=== PATIENT | female | born 1955 | race Caucasian/White ===

== ENCOUNTER 2017-12-16 06:38 | Emergency (ER) | payer OTHER ==
[2017-12-16] MEDS: FAMOTIDINE 20 MG INJ IV (07:32)
[2017-12-16] MEDS: MECLIZINE 12.5 MG TAB PO (07:32)
[2017-12-16] MEDS: KETOROLAC 30 MG INJ IV (07:33)
[2017-12-16] MEDS: ONDANSETRON 4 MG INJ IV (07:33)
[2017-12-16 07:39] LABS: ADD MAN DIFF? NO
[2017-12-16 07:41] LABS: WHITE BLOOD COUNT 7.7 10^3/ul (4.8-10.8)
[2017-12-16 07:41] LABS: BASOPHILS % 0.4 % (0.0-2.0); EOSINOPHILS % 0.1 % (0.0-7.0); HEMATOCRIT 45.8 % (37.0-47.0); HEMOGLOBIN 15.2 g/dl (12.0-16.0); LYMPHOCYTES # 0.8 10^3/ul (0.8-2.9); LYMPHOCYTES % 10.5 % (15.0-51.0); MEAN CORPUSCULAR HEMOGLOBIN 29.3 pg (29.0-33.0); MEAN CORPUSCULAR HGB CONC 33.2 g/dl (32.0-37.0); MEAN CORPUSCULAR VOLUME 88.4 fl (82.0-101.0); MEAN PLATELET VOLUME 12.2 fl (7.4-10.4); MONOCYTE # 0.2 10^3/ul (0.3-0.9); MONOCYTES % 2.6 % (0.0-11.0); NEUTROPHIL # 6.7 10^3/ul (1.6-7.5); NEUTROPHILS % 86.3 % (39.0-77.0); PLATELET COUNT 118 10^3/UL (140-415); RED BLOOD COUNT 5.18 10^6/ul (4.20-5.40); RED CELL DISTRIBUTION WIDTH 12.7 % (11.5-14.5)
[2017-12-16 08:02] LABS: INR 0.82; PROTIME 11.4 Sec (11.9-14.9); PT RATIO 0.9
[2017-12-16 08:03] LABS: PARTIAL THROMBOPLASTIN TIME 23.4 Sec (23.0-35.0)
[2017-12-16 08:14] LABS: ADD UMIC YES; UR ASCORBIC ACID 20 mg/dL (NEGATIVE); UR BILIRUBIN (Dip) NEGATIVE (NEGATIVE); UR BLOOD (Dip) NEGATIVE (NEGATIVE); UR CLARITY CLEAR (CLEAR); UR COLOR YELLOW (YELLOW); UR GLUCOSE (Dip) 1+ mg/dL (NEGATIVE); UR KETONES (Dip) 1+ mg/dL (NEGATIVE); UR LEUKOCYTE ESTERASE (Dip) NEGATIVE Leu/ul (NEGATIVE); UR MUCUS FEW /HPF (NONE SEEN); UR NITRITE (Dip) NEGATIVE (NEGATIVE); UR RBC 0 /HPF (0-5); UR SPECIFIC GRAVITY (Dip) 1.019 (1.003-1.030); UR TOTAL PROTEIN (Dip) 1+ mg/dl (NEGATIVE); UR UROBILINOGEN (Dip) NEGATIVE (NEGATIVE); UR WBC 1 /HPF (0-5)
[2017-12-16 08:57] LABS: TROPONIN-I < 0.012 ng/ml (0.000-0.120)
[2017-12-16] MEDS: DIAZEPAM 5 MG/ML SYG IV (09:31)
[2017-12-16 10:31] LABS: ALANINE AMINOTRANSFERASE 26 IU/L (13-69); ALBUMIN 4.3 g/dl (3.3-4.9); ALBUMIN/GLOBULIN RATIO 1.48; ALKALINE PHOSPHATASE 84 IU/L (42-121); AMYLASE 101 U/L (11-123); ANION GAP 9 (5-13); ASPARTATE AMINO TRANSFERASE 30 IU/L (15-46); BILIRUBIN,INDIRECT 0.6 mg/dl (0-1.1); BILIRUBIN,TOTAL 0.6 mg/dl (0.2-1.3); BLOOD UREA NITROGEN 15 mg/dl (7-20); CALCIUM 9.2 mg/dl (8.4-10.2); CARBON DIOXIDE 27 mmol/L (21-31); CHLORIDE 104 mmol/L (97-110); CREATININE 0.55 mg/dl (0.44-1.00); Estimated GFR > 60 mL/min (>60); GLUCOSE 126 mg/dl (70-220); LIPASE 50 U/L (23-300); POTASSIUM 3.9 mmol/L (3.5-5.1); SODIUM 140 mmol/L (135-144); TOTAL PROTEIN 7.2 g/dl (6.1-8.1)
== END 2017-12-16 11:15 | disposition home or self-care (01) ==
LOC: E/R 06:38
DX: R42 Dizziness and giddiness (principal); R11.10 Vomiting, unspecified; J45.909 Unspecified asthma, uncomplicated; R10.13 Epigastric pain
CPT/HCPCS: 70450; 80053; 81001; 82150; 83690; 84484; 85025; 85610; 85730; 93005; 96374; 96375; 99285-25

== ENCOUNTER 2018-05-31 15:44 | Emergency (ER) | payer OTHER | END 2018-05-31 18:40 | disposition home or self-care (01) | LOC: FTE 15:44 | DX: R05 Cough (principal); J45.909 Unspecified asthma, uncomplicated | CPT/HCPCS: 99283; Z7502 ==

== ENCOUNTER 2018-08-20 09:19 | Emergency (ER) | payer OTHER | END 2018-08-20 10:17 | disposition home or self-care (01) | LOC: FTE 10:17 | DX: J45.901 Unspecified asthma with (acute) exacerbation (principal) | CPT/HCPCS: 99283; Z7502 ==